=== PATIENT | female | born 1990 | race Caucasian/White ===

== ENCOUNTER 2021-05-01 10:27 | Emergency (ER) | payer BC, OTHER ==
[2021-05-01 11:20] LABS: RED BLOOD COUNT 4.48 M/UL (4.00-5.10); WHITE BLOOD COUNT 10.4 K/UL (4.5-11.0)
== END 2021-05-01 13:28 | disposition home or self-care (01) ==
LOC: ER1 10:27
PROVIDERS: Emergency Medicine
DX: O20.0 Threatened abortion (principal); Z3A.10 10 weeks gestation of pregnancy
CPT/HCPCS: 84702; 85025; 86900; 86901; 99284